=== PATIENT | female | born 1965 | race Caucasian/White ===

== ENCOUNTER → 2016-09-08 | Outpatient (CLI) | payer OTHER ==
[2016-09-08 18:47] VITALS: BP 119/79
== END ==
LOC: MHUC 16:58
PROVIDERS: ATTEND Physician Assistant Medical
DX: R42 Dizziness and giddiness (principal); G43.901 Migraine, unspecified, not intractable, with status migrainosus
CPT/HCPCS: 99213

== ENCOUNTER 2016-09-09 17:22 | Emergency (ER) | payer OTHER ==
[~2016-09-09] VITALS: Ht 175.3 cm; Wt 108.0 kg
--- NOTE | 2016-09-09 19:03 | NUR ---
PT REPORT GIVEN & CARE TSF TO GRACIA Dubon RN & GANESH Cheema RN. CL
[2016-09-09 19:24] VITALS: BP 126/67
== END 2016-09-09 19:25 | disposition home or self-care (01) ==
LOC: ED 17:23
DX: H81.10 Benign paroxysmal vertigo, unspecified ear (principal); F17.210 Nicotine dependence, cigarettes, uncomplicated; R51 Headache
CPT/HCPCS: 70450; 99282; 99283

== ENCOUNTER 2016-09-22 23:06 | Emergency (ER) | payer OTHER ==
[~2016-09-22] VITALS: Ht 177.8 cm; Wt 112.1 kg
[~2016-09-22 23:06] MED LIST: ACYC400T PO; AGM500T PO; LEVO75TA4 PO; MECL-105 PO; MELO-249 PO; OXB5T PO; PRED20TA PO
[2016-09-22] MEDS ORDERED: FESO4TAB2 PO (23:39)
[2016-09-23 00:22] LABS: BILIRUBIN,URINE Negative (Negative); CLARITY,URINE Clear; COLOR,URINE Yellow; GLUCOSE, URINE (UA) Negative (Negative); LEUKOCYTE ESTERASE ,URINE Negative (Negative); UROBILINOGEN,URINE 0.2 mg/dL (0.2-1.0)
[2016-09-23 00:59] VITALS: BP 122/70
== END 2016-09-23 01:00 | disposition home or self-care (01) ==
LOC: ED 23:07
DX: N32.81 Overactive bladder (principal); M79.89 Other specified soft tissue disorders; T50.995A Adverse effect of other drugs, medicaments and biological substances, initial encounter
CPT/HCPCS: 36415; 80048; 81003; 99282

== ENCOUNTER → 2016-09-30 | Outpatient (CLI) | payer OTHER ==
[~2016-09-30] MED LIST changes: +FESO4TAB2 PO
[2016-09-30 15:15] LABS: BASOPHILS % (AUTO) 1 % (0-2); EOSINOPHILS # (AUTO) 0.3 10^3uL; EOSINOPHILS % (AUTO) 6 % (0-4); LYMPHOCYTES # (AUTO) 1.8 X10^3; MEAN CORPUSCULAR HGB CONC 34.4 g/dL (31.0-37.0); MEAN CORPUSCULAR VOLUME 94 FL (80-100); MEAN PLATELET VOLUME 12.3 FL (6.0-9.5); MONOCYTES # (AUTO) 0.6 X10^3; MONOCYTES % (AUTO) 9 % (3-11); NEUTROPHILS # (AUTO) 3.3 X10^3; NEUTROPHILS % (AUTO) 54 % (51-67); PLATELET COUNT 147 10^3uL (150-450); WHITE BLOOD COUNT 6.07 10^3uL (4.0-11.0)
[2016-09-30 15:19] LABS: MEAN CORPUSCULAR HEMOGLOBIN 32.5 PG (26.0-34.0)
[2016-09-30 15:26] LABS: BILIRUBIN,URINE Negative (Negative); CLARITY,URINE Clear; COLOR,URINE Yellow; GLUCOSE, URINE (UA) Negative (Negative); LEUKOCYTE ESTERASE ,URINE Negative (Negative); PH,URINE 5.5 (5.0 - 8.0); UROBILINOGEN,URINE 0.2 mg/dL (0.2-1.0)
[2016-09-30 15:29] LABS: ALBUMIN 4.3 g/dL (3.4-5.0); ALKALINE PHOSPHATASE 74 U/L (38-126); ANION GAP 16.2 MEQ/L (3-15); BUN/CREATININE RATIO 29 (10-20); CALCULATED IONIZED CALCIUM 4.2 mg/dL (3.8-4.6); TOTAL PROTEIN 7.1 g/dL (6.4-8.5)
[2016-09-30 15:44] LABS: RBC,URINE 0-2 /HPF; URINE CENTRIFUGED VOLUME 12 mL
== END ==
LOC: LAB 14:59
PROVIDERS: ATTEND Family Medicine
DX: Z00.00 Encounter for general adult medical examination without abnormal findings (principal)
CPT/HCPCS: 36415; 80053; 80061; 81003; 81015; 83036; 84436; 84443; 85025